=== PATIENT | female | born 1965 | race Caucasian/White ===

== ENCOUNTER 2019-09-07 09:23 | Emergency (ER) | payer BC, OTHER ==
[2019-09-07] MEDS ORDERED: LIDOCAINE 1% MPF 30 ML VIAL ONE (10:54)
--- NOTE | 2019-09-07 12:03 | ER ---
Nurse's Notes [facility] Name: Colleen Jackson Age: 54 yrs Sex: Female : 1965 Arrival Date: 09/07/2019 Time: : Bed 24 Private MD: Diagnosis: Cutaneous abscess of face Presentation: 09/07 09:43 Presenting complaint: Patient states: went to urgent care Thursday because she had a lump iw behind her left ear, was put on antibiotics, not getting better and pain is increased, was seen at urgent care to follow up but was sent to ER. Transition of care: patient was not received from another setting of care. Onset of symptoms was September 01, 2019. Risk Assessment: Do you want to hurt yourself or someone else? Patient reports no desire to harm self or others. Initial Sepsis Screen: Does the patient meet any 2 criteria? No. Patient's initial sepsis screen is negative. Does the patient have a suspected source of infection? No. Patient's initial sepsis screen is negative. Care prior to arrival: None. 09:43 Method Of Arrival: Ambulatory iw 09:43 Acuity: LELO 3 iw Historical: - Allergies: 09:46 No Known Allergies; iw - Home Meds: 09:47 Clindamycin Oral [Active]; iw - PMHx: 09:47 None; iw - PSHx: 09:47 Cholecystectomy; ; right elbow; iw - Immunization history:: Adult Immunizations not up to date, Last tetanus immunization: unknown. - Social history:: Smoking status: Patient denies any tobacco usage or history of. - Ebola Screening: : Patient negative for fever greater than or equal to 101.5 degrees Fahrenheit, and additional compatible Ebola Virus Disease symptoms Patient denies exposure to infectious person Patient denies travel to an Ebola-affected area in the 21 days before illness onset No symptoms or risks identified at this time. Screenin:55 Abuse screen: Denies threats or abuse. Denies injuries from another. Nutritional ca1 screening: No deficits noted. Tuberculosis screening: No symptoms or risk factors identified. Fall Risk None identified. Assessment: 09:55 General: Appears in no apparent distress. comfortable, Behavior is calm, cooperative, ca1 appropriate for age. Pain: Complains of pain in left anabaptism Pain currently is 8 out of 10 on a pain scale. Quality of pain is described as throbbing, Pain began a week ago. Neuro: Level of Consciousness is awake, alert, obeys commands, Oriented to person, place, time, situation, Appropriate for age. Derm: Skin is intact, is healthy with good turgor, Skin is pink, warm \T\ dry. Abscess located on left anabaptism is nickel sized, has purulent drainage, is hot to touch, is red, is raised. Musculoskeletal: Circulation, motion, and sensation intact. Capillary refill. 11:06 Reassessment: Patient appears in no apparent distress at this time. Patient and/or ca1 family updated on plan of care and expected duration. Pain level reassessed. Patient is alert, oriented x 3, equal unlabored respirations, skin warm/dry/pink. 12:00 Reassessment: Patient appears in no apparent distress at this time. Patient is alert, ca1 oriented x 3, equal unlabored respirations, skin warm/dry/pink. Vital Signs: 09:46 BP 125 / 79; Pulse 98; Resp 16; Temp 97.5; Pulse Ox 98% on R/A; Weight 122.47 kg; iw Height 5 ft. 2 in. (157.48 cm); 11:06 BP 141 / 95; Pulse 107; Resp 17 S; Pulse Ox 97% on R/A; ca1 12:00 BP 119 / 81; Pulse 99; Resp 17 S; Pulse Ox 98% on R/A; ca1 09:46 Body Mass Index 49.38 (122.47 kg, 157.48 cm) iw ED Course: 09:29 Patient arrived in ED. mr 09:45 Triage completed. iw 09:46 Arm band placed on. iw 09:54 Alexandria Banegas, RN is Primary Nurse. ca1 09:55 Patient has correct armband on for positive identification. Bed in low position. Call ca1 light in reach. Side rails up X 1. Pulse ox on. NIBP on. Warm blanket given. 09:55 Patient did not have IV access during this emergency room visit. ca1 10:01 Chad Rivero PA is PHCP. jr8 10:01 Octavio Walls MD is Attending Physician. jr8 12:02 Jasmyne Hercules MD is Referral Physician. jr8 12:03 Assist provider with I \T\ D: of an abscess on left anabaptism Set up I\T\D tray. Performed by ca 1 Chad TRIVEDI Wound packed. iodoform gauze, Dressing with 4X4s, tape Patient tolerated well. Administered Medications: 10:40 Drug: Lidocaine (1 %) 1 vials {Note: by FAROOQ Bonilla.} Volume: 20 ml; Route: Infiltration; ca1 Outcome: 12:02 Discharge ordered by MD. sellers 12:09 Discharged to home ambulatory. ca1 12:09 Condition: stable 12:09 Discharge instructions given to patient, Instructed on discharge instructions, follow up and referral plans. medication usage, wound care, Demonstrated understanding of instructions, follow-up care, medications, wound care, Prescriptions given X 2. 12:10 Patient left the ED. ca1 Signatures: Sissy Schilling Irene, EARL RN Chad Gordon PA PA jrAlexandria Urrutia RN RN ca1 Corrections: (The following items were deleted from the chart) 09:48 09:46 BP 125 / 79; Pulse 98bpm; Resp 16bpm; Pulse Ox 98% RA; Temp 97.5F; iw estrella
--- NOTE | 2019-09-07 12:03 | EDPHYS ---
Physician Documentation [facility] Name: Colleen Jackson Age: 54 yrs Sex: Female : 1965 Arrival Date: 09/07/2019 Time: : Bed 24 Private MD: ED Physician Octavio Walls HPI: 09/07 10:51 This 54 yrs old Female presents to ER via Ambulatory with complaints of Skin jr8 Problem. 10:51 the patient presents with a swollen area of the face. Description: The affected area is jr8 moderate sized, erythematous, swollen, warm. Onset: The symptoms/episode began/occurred acutely, 2 day(s) ago. Possible cause(s): unknown. Associated signs and symptoms: The patient has no apparent associated signs or symptoms. Modifying factors: the symptoms are alleviated by nothing, the symptoms are aggravated by pressure, squeezing the lesion and expressing the contents, touching. Severity of symptoms: At their worst the symptoms were moderate, in the emergency department the symptoms are unchanged. The patient has not experienced similar symptoms in the past. The patient has been recently seen at an urgent care. Patient seen at urgent care and started on Clindamycin for infection to left baptism/auricular region. Stated that pain is still persistent and feels that the redness is worse . Historical: - Allergies: 09:46 No Known Allergies; iw - Home Meds: 09:47 Clindamycin Oral [Active]; iw - PMHx: 09:47 None; iw - PSHx: 09:47 Cholecystectomy; ; right elbow; iw - Immunization history:: Adult Immunizations not up to date, Last tetanus immunization: unknown. - Social history:: Smoking status: Patient denies any tobacco usage or history of. - Ebola Screening: : Patient negative for fever greater than or equal to 101.5 degrees Fahrenheit, and additional compatible Ebola Virus Disease symptoms Patient denies exposure to infectious person Patient denies travel to an Ebola-affected area in the 21 days before illness onset No symptoms or risks identified at this time. ROS: 10:52 Eyes: Negative for injury, pain, redness, and discharge, ENT: Negative for injury, jr8 pain, and discharge, Neck: Negative for injury, pain, and swelling, Cardiovascular: Negative for chest pain, palpitations, and edema, Respiratory: Negative for shortness of breath, cough, wheezing, and pleuritic chest pain, Abdomen/GI: Negative for abdominal pain, nausea, vomiting, diarrhea, and constipation, Back: Negative for injury and pain, MS/Extremity: Negative for injury and deformity, Neuro: Negative for headache, weakness, numbness, tingling, and seizure. 10:52 Skin: Positive for erythema, swelling, of the auricular region . Exam: 10:53 Eyes: Pupils equal round and reactive to light, extra-ocular motions intact. Lids and jr8 lashes normal. Conjunctiva and sclera are non-icteric and not injected. Cornea within normal limits. Periorbital areas with no swelling, redness, or edema. ENT: Nares patent. No nasal discharge, no septal abnormalities noted. Tympanic membranes are normal and external auditory canals are clear. Oropharynx with no redness, swelling, or masses, exudates, or evidence of obstruction, uvula midline. Mucous membranes moist. Neck: Trachea midline, no thyromegaly or masses palpated, and no cervical lymphadenopathy. Supple, full range of motion without nuchal rigidity, or vertebral point tenderness. No Meningismus. Cardiovascular: Regular rate and rhythm with a normal S1 and S2. No gallops, murmurs, or rubs. Normal PMI, no JVD. No pulse deficits. Respiratory: Lungs have equal breath sounds bilaterally, clear to auscultation and percussion. No rales, rhonchi or wheezes noted. No increased work of breathing, no retractions or nasal flaring. Abdomen/GI: Soft, non-tender, with normal bowel sounds. No distension or tympany. No guarding or rebound. No evidence of tenderness throughout. Back: No spinal tenderness. No costovertebral tenderness. Full range of motion. MS/ Extremity: Pulses equal, no cyanosis. Neurovascular intact. Full, normal range of motion. Neuro: Awake and alert, GCS 15, oriented to person, place, time, and situation. Cranial nerves II-XII grossly intact. Motor strength 5/5 in all extremities. Sensory grossly intact. Cerebellar exam normal. Normal gait. 10:53 Skin: Patient has swollen fluctuant area to the superior/anterior pre auricular region of left ear with surrounding erythema that extends to portions of the auricular region, baptism, and post auricular region . Vital Signs: 09:46 BP 125 / 79; Pulse 98; Resp 16; Temp 97.5; Pulse Ox 98% on R/A; Weight 122.47 kg; iw Height 5 ft. 2 in. (157.48 cm); 11:06 BP 141 / 95; Pulse 107; Resp 17 S; Pulse Ox 97% on R/A; ca1 12:00 BP 119 / 81; Pulse 99; Resp 17 S; Pulse Ox 98% on R/A; ca1 09:46 Body Mass Index 49.38 (122.47 kg, 157.48 cm) iw Procedures: 12:01 I \T\ D: Incision and drainage was performed for an abscess of the left pre auricular jr8 region Prepped with Betadine, Anesthetized with 2 ml's 1% Lidocaine. Incised with #11 blade. Drained moderate amount purulent fluid. Loculations removed. Abscess cavity explored. Packed with iodoform gauze, the patient tolerated the procedure well. MDM: 10:01 Patient medically screened. jr8 12:01 Data reviewed: vital signs, nurses notes, and as a result, I will discharge patient. jr8 Data interpreted: Pulse oximetry: on room air is 97 %. Interpretation: normal. Counseling: I had a detailed discussion with the patient and/or guardian regarding: the historical points, exam findings, and any diagnostic results supporting the discharge/admit diagnosis, the need for outpatient follow up, an ENT specialist, to return to the emergency department if symptoms worsen or persist or if there are any questions or concerns that arise at home. 09/07 10:46 Order name: I\T\D Setup; Complete Time: 10:50 jr8 Administered Medications: 10:40 Drug: Lidocaine (1 %) 1 vials {Note: by PA. Chad} Volume: 20 ml; Route: Infiltration; ca1 Disposition: 16:45 Co-signature as Attending Physician, Octavio Walls MD. rn Disposition: 09/07/19 12:02 Discharged to Home. Impression: Cutaneous abscess of face. - Condition is Stable. - Discharge Instructions: Skin Abscess, Incision and Drainage. - Prescriptions for Tylenol- Codeine #3 300-30 mg Oral Tablet - take 2 tablets by ORAL route every 6 hours As needed; 20 tablet. Bactrim DS 800- 160 mg Oral Tablet - take 1 tablet by ORAL route every 12 hours for 10 days; 20 tablet. - Medication Reconciliation Form, Thank You Letter, Antibiotic Education, Prescription Opioid Use, Work release form form. - Follow up: Jasmyne Hercules MD; When: 2 - 3 days; Reason: Wound Recheck, Recheck today's complaints, Continuance of care, Re-evaluation by your physician. - Problem is new. - Symptoms have improved. Signatures: Vidhya Lee RN RN iw Octavio Walls MD MD rn Roszak, Josh, FAROOQ PA jr8 Alexandria Banegas RN RN ca1 Corrections: (The following items were deleted from the chart) 10:54 10:52 Skin: Positive for erythema, swelling, of the left baptism, jr8 jr8 12:10 12:02 09/07/2019 12:02 Discharged to Home. Impression: Cutaneous abscess of face. ca1 Condition is Stable. Forms are Medication Reconciliation Form, Thank You Letter, Antibiotic Education, Prescription Opioid Use. Follow up: Jasmyne Hercules; When: 2 - 3 days; Reason: Wound Recheck, Recheck today's complaints, Continuance of care, Re-evaluation by your physician. Problem is new. Symptoms have improved. jr8
[2019-09-07 19:26] VITALS: TEMP 97.5
[2019-09-07 19:29] VITALS: BP 119/81; O2SAT 98
== END 2019-09-07 12:10 | disposition home or self-care (01) ==
LOC: ER 09:23
PROC: 0H91XZZ Drainage of Face Skin, External Approach (ICD-10-PCS; principal; 2019-09-07)
DX: L02.01 Cutaneous abscess of face (principal)
CPT/HCPCS: 99284

== ENCOUNTER 2022-04-14 07:50 | Emergency (ER) | payer BC ==
[2022-04-14] MEDS ORDERED: MECLIZINE HCL 12.5 MG TAB ONE (08:29)
[2022-04-14] MEDS ORDERED: NA CHLORIDE 0.9% 500 ML ONE (08:29)
[2022-04-14 08:31] LABS: Absolute Lymphocytes (CBC) 1.9 K/uL (0.7-4.9); Hematocrit 39.6 % (36.0-45.0); Lymphocytes % 24.9 % (15.3-44.8); MCV 93.5 fL (80-100); MPV 8.1 fL (7.6-11.3); RBC Red Blood Cell Count 4.24 M/uL (3.86-4.86)
--- NOTE | 2022-04-14 08:34 | RAD REPORT ---
EXAM DESCRIPTION: CT - Head Brain Wo Cont - 04/14/2022 8:26 am CLINICAL HISTORY: dizziness, vertigo COMPARISON: No comparisons TECHNIQUE: All CT scans are performed using dose optimization technique as appropriate and may inclu de automated exposure control or mA/KV adjustment according to patient size. FINDINGS: No intracranial hemorrhage, hydrocephalus or extra-axial fluid collection.No areas of brai n edema or evidence of midline shift. The paranasal sinuses and mastoids are clear. The calvarium is intact. IMPRESSION: No acute intracranial abnormality.
[2022-04-14 08:42] LABS: Potassium 3.5 mmol/L (3.5-5.1)
[2022-04-14 08:51] LABS: Protime INR 1.03
--- NOTE | 2022-04-14 09:06 | RAD REPORT ---
EXAM DESCRIPTION: MRI - Brain Wo Cont - 04/14/2022 8:53 am CLINICAL HISTORY: dizziness/vertigo COMPARISON: Head Brain Wo Cont dated 04/14/2022 TECHNIQUE: Sagittal T1-weighted images were obtained along with PD/heavily T2-weighted and T2-FLAIR images. Axial DWI and ADC mapping sequences were also obtained along with coronal heavily T2-weighted images were obtained. FINDINGS: No intracranial hemorrhage, mass or acute infarction. There is no edema or shift of midlin e structures. No extra-axial fluid collections. Signal voids are seen as a normal finding in the derrick r intracranial vessels. No significant white matter disease. Mastoid air cells and paranasal sinuses are clear. IMPRESSION: Negative non-contrast MRI of the Brain. Specifically, no evidence of acute infarct.
--- NOTE | 2022-04-14 09:19 | ER ---
Nurse's Notes [facility] Name: Colleen Jackson Age: 56 yrs Sex: Female : 1965 Arrival Date: 04/14/2022 Time: 07:51 Bed 13 Private MD: Diagnosis: Vertigo Presentation: 04/14 07:53 Chief complaint: Patient states: Dizziness since yesterday morning, reports she feels aa5 like left ear is plugged up. Coronavirus screen: At this time, the client does not indicate any symptoms associated with coronavirus-19. Ebola Screen: No symptoms or risks identified at this time. Initial Sepsis Screen: Does the patient meet any 2 criteria? HR > 90 bpm. Does the patient have a suspected source of infection? No. Patient's initial sepsis screen is negative. Risk Assessment: Do you want to hurt yourself or someone else? Patient reports no desire to harm self or others. Onset of symptoms was March 2022. 07:53 Method Of Arrival: Ambulatory aa5 07:53 Acuity: LELO 3 aa5 Triage Assessment: 08:00 General: Appears in no apparent distress. Behavior is calm, cooperative. Pain: Denies jg9 pain. Historical: - Allergies: 08:01 No Known Allergies; aa5 - Home Meds: 08:01 None [Active]; aa5 - PMHx: 08:01 None; aa5 - PSHx: 08:01 section; Cholecystectomy; R elbow; aa5 - Immunization history:: Adult Immunizations unknown. - Social history:: Smoking status: Patient denies any tobacco usage or history of. - Family history:: not pertinent. - Hospitalizations: : No recent hospitalization is reported. Screenin:06 Abuse screen: Denies threats or abuse. Denies injuries from another. Nutritional jg9 screening: No deficits noted. Tuberculosis screening: No symptoms or risk factors identified. Fall Risk None identified. Assessment: 08:00 Reassessment: No changes from previously documented assessment. Patient and/or family jg9 updated on plan of care and expected duration. Pain level reassessed. Patient is alert, oriented x 3, equal unlabored respirations, skin warm/dry/pink. Neuro: Reports dizziness. Cardiovascular: No deficits noted. Respiratory: No deficits noted. GI: No deficits noted. : No deficits noted. EENT: No deficits noted. Derm: No deficits noted. Musculoskeletal: No deficits noted. 09:00 Reassessment: No changes from previously documented assessment. Patient and/or family jg9 updated on plan of care and expected duration. Pain level reassessed. Patient is alert, oriented x 3, equal unlabored respirations, skin warm/dry/pink. Patient states feeling better. Patient states symptoms have improved. Vital Signs: 07:53 BP 144 / 83; Pulse 94; Resp 18 S; Temp 97.9(O); Pulse Ox 100% on R/A; Weight 91.63 kg aa5 (R); Height 5 ft. 2 in. (157.48 cm) (R); Pain 0/10; 08:00 BP 145 / 76; Pulse 92; Resp 17 S; Pulse Ox 100% on R/A; Pain 0/10; jg9 09:15 BP 123 / 82; Pulse 84; Resp 14 S; Pulse Ox 100% on R/A; jg9 07:53 Body Mass Index 36.95 (91.63 kg, 157.48 cm) aa5 ED Course: 07:51 Patient arrived in ED. am2 07:52 Octavio Walls MD is Attending Physician. rn 07:58 Arm band placed on Patient placed in an exam room, on a stretcher. aa5 08:00 Missed attempt(s): 22 gauge in right forearm. jg9 08:01 Triage completed. aa5 08:01 EKG done, by ED staff, reviewed by Octavio Walls MD. mb7 08:05 Jewels Traore, RN is Primary Nurse. jg9 08:05 Inserted saline lock: 22 gauge in left antecubital area, using aseptic technique. jg9 08:07 Patient has correct armband on for positive identification. Bed in low position. Call jg9 light in reach. Side rails up X 1. 08:20 Basic Metabolic Panel Sent. kc6 08:20 CBC with Diff Sent. kc6 08:20 Protime (+inr) Sent. kc6 08:20 Ptt, Activated Sent. kc6 08:28 CT Head Brain wo Cont In Process Unspecified. EDMS 08:53 Brain Wo Cont MRI In Process Unspecified. EDMS 09:19 Dane Nino MD is Referral Physician. rn Administered Medications: 09:05 Drug: NS 0.9% 500 ml Route: IV; Rate: bolus; Site: left antecubital; jg9 09:37 Follow up: IV Status: Completed infusion; IV Intake: 500ml g 09:09 Drug: Meclizine 50 mg Route: PO; g9 09:30 Follow up: Response: No adverse reaction g9 Intake: 09:37 IV: 500ml; Total: 500ml. g9 Outcome: 09:19 Discharge ordered by . rn 09:38 Patient left the ED. g9 Signatures: Dispatcher [employer] EDMS Octavio Walls MD MD rn Calderon, Audri RN RN aa5 Candi Myers Mary mb7 Jewels Traore RN RN jg9 Lidya Escobar kc6
--- NOTE | 2022-04-14 09:20 | EDPHYS ---
Physician Documentation [facility] Name: Colleen Jackson Age: 56 yrs Sex: Female : 1965 Arrival Date: 04/14/2022 Time: 07:51 Bed 13 Private MD: ED Physician Octavio Walls HPI: 04/14 08:29 This 56 yrs old Female presents to ER via Ambulatory with complaints of Dizziness. rn 08:29 The patient presents with dizziness, feeling off balance, vertigo. Onset: The rn symptoms/episode began/occurred yesterday. Modifying factors: The symptoms are alleviated by closing eyes, holding head still, the symptoms are aggravated by movement of head, standing up. Associated signs and symptoms: Pertinent positives: nausea, Pertinent negatives: abdominal pain, chest pain, confusion, seizure, shortness of breath, syncope, tingling, vomiting. Severity of symptoms: At their worst the symptoms were moderate in the emergency department the symptoms have improved. The patient has not experienced similar symptoms in the past. The patient has not recently seen a physician. Pt reports dizziness, sensation of spinning, began yesterday morning when woke up. No fever. No head injury. Has never happened before. Denies any other focal neuro complaints. NO headache. No recent illness. . Historical: - Allergies: 08:01 No Known Allergies; aa5 - Home Meds: 08:01 None [Active]; aa5 - PMHx: 08:01 None; aa5 - PSHx: 08:01 section; Cholecystectomy; R elbow; aa5 - Immunization history:: Adult Immunizations unknown. - Social history:: Smoking status: Patient denies any tobacco usage or history of. - Family history:: not pertinent. - Hospitalizations: : No recent hospitalization is reported. ROS: 08:29 Constitutional: Negative for fever, chills, and weight loss, Eyes: Negative for injury, rn pain, redness, and discharge, ENT: Negative for injury, pain, and discharge, Neck: Negative for injury, pain, and swelling, Cardiovascular: Negative for chest pain, palpitations, and edema, Respiratory: Negative for shortness of breath, cough, wheezing, and pleuritic chest pain, Abdomen/GI: Negative for abdominal pain, vomiting, diarrhea, and constipation, Back: Negative for injury and pain, : Negative for injury, bleeding, discharge, and swelling, MS/Extremity: Negative for injury and deformity, Skin: Negative for injury, rash, and discoloration, Neuro: Negative for weakness, numbness, tingling, and seizure. Exam: 08:25 ECG was reviewed by the Attending Physician. rn 08:29 Constitutional: This is a well developed, well nourished patient who is awake, alert, rn and in no acute distress. Head/Face: Normocephalic, atraumatic. Eyes: Pupils equal round and reactive to light, extra-ocular motions intact. Lids and lashes normal. Conjunctiva and sclera are non-icteric and not injected. Cornea within normal limits. Periorbital areas with no swelling, redness, or edema. Neck: Trachea midline, no thyromegaly or masses palpated, and no cervical lymphadenopathy. Supple, full range of motion without nuchal rigidity, or vertebral point tenderness. No Meningismus. Cardiovascular: Regular rate and rhythm. No pulse deficits. Respiratory: Lungs have equal breath sounds bilaterally, clear to auscultation and percussion. No rales, rhonchi or wheezes noted. No increased work of breathing, no retractions or nasal flaring. Abdomen/GI: Soft, non-tender, with normal bowel sounds. No distension or tympany. No guarding or rebound. No evidence of tenderness throughout. Skin: Warm, dry with normal turgor. Normal color with no rashes, no lesions, and no evidence of cellulitis. MS/ Extremity: Pulses equal, no cyanosis. Neurovascular intact. Full, normal range of motion. Equal circumference. Neuro: Awake and alert, GCS 15, oriented to person, place, time, and situation. Cranial nerves II-XII grossly intact. Motor strength 5/5 in all extremities. Sensory grossly intact. Cerebellar exam normal Vital Signs: 07:53 BP 144 / 83; Pulse 94; Resp 18 S; Temp 97.9(O); Pulse Ox 100% on R/A; Weight 91.63 kg aa5 (R); Height 5 ft. 2 in. (157.48 cm) (R); Pain 0/10; 08:00 BP 145 / 76; Pulse 92; Resp 17 S; Pulse Ox 100% on R/A; Pain 0/10; jg9 09:15 BP 123 / 82; Pulse 84; Resp 14 S; Pulse Ox 100% on R/A; jg9 07:53 Body Mass Index 36.95 (91.63 kg, 157.48 cm) aa5 MDM: 07:52 Patient medically screened. rn 09:14 Differential diagnosis: generalized weakness, hyperventilation, hypovolemia, idiopathic rn dizziness, vertigo. Data reviewed: vital signs, nurses notes, lab test result(s), EKG, radiologic studies, CT scan, MRI, and as a result, I will discharge patient. Counseling: I had a detailed discussion with the patient and/or guardian regarding: the historical points, exam findings, and any diagnostic results supporting the discharge/admit diagnosis, lab results, radiology results, the need for outpatient follow up, to return to the emergency department if symptoms worsen or persist or if there are any questions or concerns that arise at home. Response to treatment: the patient's symptoms have mildly improved after treatment, and as a result, I will discharge patient. Special discussion: I discussed with the patient/guardian in detail that at this point there is no indication for admission to the hospital. It is understood, however, that if the symptoms persist or worsen the patient needs to return immediately for re-evaluation. Based on the history and exam findings, there is no indication for further emergent testing or inpatient evaluation. I discussed with the patient/guardian the need to see the neurologist for further evaluation of the symptoms. ED course: Pt improved, CT head and MRI negative, stable vitals, no focal neuro deficits on exam, had long conversation with patient regarding not driving and to avoid heights until resolves. Will f/u with Dr. Nino for further evaluation and care. . 04/14 08:13 Order name: Basic Metabolic Panel; Complete Time: rn 04/14 08:13 Order name: CBC with Diff; Complete Time: rn 04/14 08:13 Order name: Protime (+inr); Complete Time: rn 04/14 08:13 Order name: Ptt, Activated; Complete Time: rn 04/14 08:13 Order name: CT Head Brain wo Cont; Complete Time: 04/14 08:14 Order name: Brain Wo Cont MRI; Complete Time: 09:04/14 08:13 Order name: EKG; Complete Time: 08:14 rn 04/14 08:13 Order name: Cardiac monitoring; Complete Time: 08:16 rn 04/14 08:13 Order name: EKG - Nurse/Tech; Complete Time: 08:16 rn 04/14 08:13 Order name: IV Saline Lock; Complete Time: 08:17 rn 04/14 08:13 Order name: Labs collected and sent; Complete Time: 08:17 rn 04/14 08:13 Order name: O2 Per Protocol; Complete Time: 08:20 rn 04/14 08:13 Order name: O2 Sat Monitoring; Complete Time: 08:17 rn EC:25 Rate is 88 beats/min. Rhythm is regular. QRS [place] is Normal. [place] interval is normal. QRS rn interval is normal. QT interval is normal. No Q waves. T waves are Normal. No ST changes noted. Clinical impression: Normal ECG. Interpreted by me. Reviewed by me. Administered Medications: 09:05 Drug: NS 0.9% 500 ml Route: IV; Rate: bolus; Site: left antecubital; jg9 09:37 Follow up: IV Status: Completed infusion; IV Intake: 500ml jg9 09:09 Drug: Meclizine 50 mg Route: PO; jg9 09:30 Follow up: Response: No adverse reaction jg9 Disposition Summary: 04/14/22 09:19 Discharge Ordered Location: Home rn Problem: new rn Symptoms: have improved rn Condition: Stable rn Diagnosis - Vertigo rn Followup: rn - With: Dane Nino MD - When: As needed - Reason: Recheck today's complaints, Re-evaluation by your physician Discharge Instructions: - Discharge Summary Sheet rn - Benign Positional Vertigo rn - Vertigo rn Forms: - Medication Reconciliation Form rn - Thank You Letter rn - Antibiotic development intern - Prescription Opioid Use rn Prescriptions: - Meclizine 25 mg Oral Tablet - take 1 tablet by ORAL route every 8 hours As needed; 30 tablet; Refills: 0, rn Product Selection Permitted Signatures: Dispatcher [employer] Octavio Malagon MD MD rn Calderon, Audri RN RN aa5 Jewels Traore RN RN jg9 Corrections: (The following items were deleted from the chart) 09:38 08:13 Urine Dipstick-Ancillary ordered. rn jg9
[2022-04-14 10:33] VITALS: TEMP 97.9; O2SAT 100
[2022-04-14 10:45] VITALS: BP 123/82
--- NOTE | 2022-04-15 08:16 | EKG ---
Test Date: 2022-04-14 Test Time: 08:01:54 Development Rep: ABDIAS MEASUREMENT RESULTS: Intervals: Rate: 88 CA: 134 QRSD: 82 QT: 356 QTc: 430 [place]: P: 71 CA: 134 QRS: 49 T: 68 INTERPRETIVE STATEMENTS: Normal sinus rhythm Normal ECG Compared to ECG 01/14/2012 08:47:52 No significant changes Electronically Signed On 04-15-22 08:12:32 CDT by Demetris Parekh
== END 2022-04-14 09:38 | disposition home or self-care (01) ==
LOC: ER 07:50
DX: R42 Dizziness and giddiness (principal); R11.0 Nausea
CPT/HCPCS: 93005; 85025; 80048; 36415; 85610; 85730; 70450; 70551; J8597; J7040; 96360; 99284

== ENCOUNTER 2022-07-08 23:11 | Emergency (ER) | payer BC ==
--- OUTSIDE RECORDS SUMMARY | 2022-07-08 23:14 | XMS REPORT | Continuity of Care Document ---
:1965 Author Organization [facility] t Address [address] [place] [address] Care Team Providers Name Role Phone Usman Contreras Primary Care Physician USMAN CHRIS Attending Clinician Unavailable Usman Contreras Attending Clinician Lab, Ang - Db Attending Clinician Unavailable Doctor Unassigned, [place] Attending Clinician Unavailable Payers Payer Name Policy Type Policy Number Effective Date Expiration Date S jenni [facility] - [id number] 2022 00:00:00 OUT OF STATE Problems Condition Condition Condition Status Onset Resolution Last Treating Co mments Source Name Details Category Date Date Treatment Clinician Date Encounter Encounter Disease Active 2021-08 Uni vers to to 18 ity of establish establish 00:00: [facility] 00 Medical Branch Elevated Elevated Disease Active 2021-08 Unive rs TSH TSH -18 ity of 00:00: [place] 00 Medical Branch Depression Depression Disease Active 2021-08 U maverickers , , 1-18 ity of unspecifie unspecifie 00:00: Del hernandez d d 00 Medical depression depression Br anch type type Obesity Obesity Disease Active 2021-08 Univers (BMI (BMI 1-18 ity of 30.0-34.9) 30.0-34.9[place] Elevated Elevated Disease Active 2021-08 Unive rs blood blood -18 ity of pressure pressure 00:00: [place] reading in reading in 00 Me dical office office Branch without without diagnosis diagnosis of of hypertensi hypertensi on on Primary Primary Disease Active 2021-08 Univers insomnia insomnia 09-03 ity of 00:00: [place] [address] Medical Branch Allergies, Adverse Reactions, Alerts Allergy Allergy Status Severity Reaction(s) Onset Inactive Treating Comm ents Source Name Type Date Date Clinician NO KNOWN Drug Active Univers ALLERGIE Class ity of S [place] Medical Branch Social History Social Habit Start Date Stop Date Quantity Comments Source Exposure to 2022-06-24 2022-07-04 Not sure [facility] SARS-CoV-2 (event) 00:00:00 14:36:00 Medica l Branch Sex Assigned At [birth year] [facility] 00:00:00 00:00:00 Medical Branch Smoking Status Start Date Stop Date Source Tobacco smoking consumption [facility] Medical unknown Branch Medications Ordered Filled Start Stop Current Ordering Indication Dosage Frequency Signature Comments Components Source Medication Medication Date Date Medication? Clinician (SIG) Name Name calcium 2021-08 Yes Take by Univers carbonate/v 1-18 mouth. ity of itamin D3 15:18: [place] (VITAMIN 00 Medical D-3 ORAL) Branch MELATONIN 2021-08 Yes Take by Unive rs ORAL 1-18 mouth. ity of 15:18: Medical Branch TURMERIC 2021-08 Yes Take by Univer s ORAL 1-18 mouth. ity of 15:18: Medical Branch calcium 2021-08 Yes Take by Univers carbonate/v 1-18 mouth. ity of itamin D3 15:18: [place] (VITAMIN 00 Medical D-3 ORAL) Branch MELATONIN 2021-08 Yes Take by Unive rs ORAL 1-18 mouth. ity of 15:18: Medical Branch TURMERIC 2021-08 Yes Take by Univer s ORAL 1-18 mouth. ity of 15:18: 00 Medical Branch calcium 2021-08 Yes Take by Univers carbonate/v 1-18 mouth. ity of itamin D3 15:18: [place] (VITAMIN 00 Medical D-3 ORAL) Branch MELATONIN 2021-08 Yes Take by Unive rs ORAL 1-18 mouth. ity of 15:18: Medical Branch TURMERIC 2021-08 Yes Take by Univer s ORAL 1-18 mouth. ity of 15:18: [place] 00 Medical Branch calcium 2021-08 Yes Take by Univers carbonate/v 1-18 mouth. ity of itamin D3 15:18: [place] (VITAMIN 00 Medical D-3 ORAL) Branch MELATONIN 2021-08 Yes Take by Unive rs ORAL 1-18 mouth. ity of 15:18: [place] 00 Medical Branch TURMERIC 2021-08 Yes Take by Univer s ORAL 1-18 mouth. ity of 15:18: [place] 00 Medical Branch calcium 2021-08 Yes Take by Univers carbonate/v 1-18 mouth. ity of itamin D3 15:18: [place] (VITAMIN 00 Medical D-3 ORAL) Branch MELATONIN 2021-08 Yes Take by Unive rs ORAL 1-18 mouth. ity of 15:18: [place] 00 Medical Branch TURMERIC 2021-08 Yes Take by Univer s ORAL 1-18 mouth. ity of 15:18: [place] 00 Medical Branch hydrOXYzine 2021-08 Yes [id number] 25mg Take 1 U nivers 25 mg 1-18 tablet by ity of tablet 00:00: mouth at [place] 00 bedtime. Medical Branch hydrOXYzine 2021-08 Yes [id number] 25mg Take 1 U nivers 25 mg 1-18 tablet by ity of tablet 00:00: mouth at [place] 00 bedtime. Medical Branch hydrOXYzine 2021-08 Yes [id number] 25mg Take 1 U nivers 25 mg 1-18 tablet by ity of tablet 00:00: mouth at [place] 00 bedtime. Medical Branch hydrOXYzine 2021-08 Yes [id number] 25mg Take 1 U nivers 25 mg 1-18 tablet by ity of tablet 00:00: mouth at [place] [address] bedtime. Medical Branch hydrOXYzine 2021-08 Yes [id number] 25mg Take 1 U nivers 25 mg 1-18 tablet by ity of tablet 00:00: mouth at [place] 00 bedtime. Medical Branch MOUNJARO 5 2021-08 Yes INJECT Unive rs mg/0.5 mL 0-26 FIVE (5) ity of PnIj 00:00: MG SUBCUTANEO Medical USLY ONCE Branch WEEKLY FOR 4 WEEKS. [facility] 5 2021-08 Yes INJECT Unive rs mg/0.5 mL 0-26 FIVE (5) ity of PnIj 00:00: MG [place] 00 SUBCUTANEO Medical USLY ONCE Branch WEEKLY FOR 4 WEEKS. [facility] 2021[facility] Yes INJECT Unive rs mg/0.5 mL 0-26 FIVE (5) ity of PnIj 00:00: MG [place] 00 SUBCUTANEO Medical USLY ONCE Branch WEEKLY FOR 4 WEEKS. [facility] 2021-08 Yes INJECT Unive rs mg/0.5 mL 0-26 FIVE (5) ity of PnIj 00:00: MG [place] 00 SUBCUTANEO Medical USLY ONCE Branch WEEKLY FOR 4 WEEKS. [facility] 2021-08 Yes INJECT Unive rs mg/0.5 mL 0-26 FIVE (5) ity of PnIj 00:00: MG [place] 00 SUBCUTANEO Medical USLY ONCE Branch WEEKLY FOR 4 WEEKS. buPROPion 2021-08 Yes 150mg Take 150 Uni vers XL 150 mg 0-04 mg by ity of 24 hr 00:00: mouth [place] tablet 00 every Medical morning. Branch buPROPion 2021-08 Yes 150mg Take 150 Uni vers XL 150 mg 0-04 mg by ity of 24 hr 00:00: mouth [place] tablet 00 every Medical morning. Branch buPROPion 2021-08 Yes 150mg Take 150 Uni vers XL 150 mg 0-04 mg by ity of 24 hr 00:00: mouth [place] tablet 00 every Medical morning. Branch buPROPion 2021-08 Yes 150mg Take 150 Uni vers XL 150 mg 0-04 mg by ity of 24 hr 00:00: mouth [place] tablet 00 every Medical morning. Branch buPROPion 2021-08 Yes 150mg Take 150 Uni vers XL 150 mg 0-04 mg by ity of 24 hr 00:00: mouth [place] tablet 00 every Medical morning. [place] Vital Signs Vital Name Observation Time Observation Value Comments Source Systolic blood 2022-07-04 21:18:00 139 mm[Hg] Univer sity of pressure [facility] Diastolic blood 2022-07-04 21:18:00 85 mm[Hg] Unive rsity [facility] Heart rate 2022-07-04 21:18:00 98 /min [facility] Body temperature 2022-07-04 21:18:00 [facility].44 [facility] height 2022-07-04 21:18:00 158.8 cm [facility] Body weight 2022-07-04 21:18:00 86.41 kg [facility] BMI 2022-07-04 21:18:00 34.29 kg/m2 [facility] Oxygen saturation in 2022-07-04 21:18:00 100 /min University Arterial blood by [facility] Pulse oximetry Branch Procedures Procedure Date / Time Performed Performing Clinician [facility] CONSENT/REFUSAL FOR 2022-07-04 20:39:56 Doctor Unassigned, No Un [facility] DIAGNOSIS AND Name [facility] TREATMENT Encounters Start End Encounter Admission Attending Care Care Encounter Source Date/Time Date/Time Type Type Clinicians Facility Department ID 2022-08-13 2022-08-13 Outpatient R DOT [facility] [id number] Univers 08:00:00 08:00:00 USMAN ryne [facility] 2022-07-07 2022-07-07 Telephone Dot [facility] [id number] Univers 00:00:00 00:00:00 Usman [facility] [id number] it y of [facility] [id number] Favio as MAG?BLEA [id number] [facility] [address] MEDICAL OFFICE BUILDING 2022-07-04 2022-07-04 [facility], Ang - [facility] [id number] Univers 16:00:00 16:15:00 Visit Usman Chris [facility] [id number] ity of [place] [id number] Favio as MAG?BLEA [id number] [facility] [address] MEDICAL OFFICE BUILDING 2022-07-04 2022-07-04 Outpatient R DOT [facility] [id number] Univers 15:00:00 15:56:08 USMAN michele [facility] 2022-07-04 2022-07-04 [facility] [id number] Univers 15:00:00 15:56:08 Visit Usman [facility] [id number] it y of [place] [id number] Favio as MAG?BLEA [id number] Nm veena GODINEZ 044 Branch MEDICAL OFFICE BUILDING 2022-07-04 2022-07-04 Orders Doctor LORENA [id number] 00:00:00 00:00:00 Only Unassigned, CAR[place] [id number] ity of [place] [facility] [id number] Favio as [id number] [place] [address] Branch Results This patient has no known results.
[2022-07-09] MEDS ORDERED: ONDANSETRON 4 MG/2 ML VIAL ONE (00:13)
[2022-07-09] MEDS ORDERED: FAMOTIDINE 20 MG/2 ML VIAL IV ONE (00:13)
[2022-07-09] MEDS ORDERED: NA CHLORIDE 0.9% 1,000 ML ONE (00:13)
[2022-07-09 01:07] LABS: Absolute Lymphocytes (CBC) 0.7 K/uL (0.7-4.9); Hematocrit 41.4 % (36.0-45.0); Lymphocytes % 6.6 % (15.3-44.8); MCV 93.6 fL (80-100); MPV 8.7 fL (7.6-11.3); RBC Red Blood Cell Count 4.42 M/uL (3.86-4.86)
[2022-07-09 01:12] LABS: Albumin 3.2 g/dL (3.4-5.0); Bilirubin Total 0.6 mg/dL (0.2-1.0); Magnesium 2.1 mg/dL (1.8-2.4); Potassium 3.3 mmol/L (3.5-5.1); Protein, Total 7.3 g/dL (6.4-8.2)
[2022-07-09] MEDS ORDERED: LIDOCAINE VISCOUS 2% SOLN 15 ML UDC ONE (01:18)
[2022-07-09 01:47] LABS: Urine Blood Negative (Negative); Urine Glucose Negative (Negative); Urine Protein 1+ (Negative); Urine Specific Gravity >=1.030 (1.005-1.030); Urine pH 5.5 (5.0-7.0)
[2022-07-09 02:41] LABS: Calcium Oxalate Crystals- Ur Few /HPF (None Seen); Urine Mucus 3+ /HPF (None Seen)
--- NOTE | 2022-07-09 03:14 | EDPHYS ---
Physician Documentation [facility] Name: Colleen Jackson Age: 56 yrs Sex: Female : 1965 Arrival Date: 07/08/2022 Time: 23:16 Bed 14 Private MD: KOURTNEY Physician Narendra Mcdaniels HPI: 07/08 23:40 This 56 yrs old Female presents to ER via Wheelchair with complaints of Nausea, cp Diarrhea. 23:40 The patient presents to the emergency department with nausea, that is moderate, cp diarrhea, that is continuous, abdominal pain, of the abdomen diffusely. Onset: The symptoms/episode began/occurred 2 day(s) ago. Possible causes: unknown. Associated signs and symptoms: Pertinent positives: anorexia, Pertinent negatives: constipation, fever, GI bleeding. Severity of symptoms: in the emergency department the symptoms are unchanged despite home interventions. Historical: - Allergies: 23:41 No Known Allergies; kb3 - Home Meds: 23:41 Wellbutrin SR 150 mg Oral SR12 1 tab once daily [Active]; hydroxyzine HCl 25 mg Oral kb3 tab 1 tab nightly for anxiety [Active]; Mounjaro 5mg 5 mg weekly on Thu [Active]; - PMHx: 23:41 Depressive disorder; Anxiety; kb3 - PSHx: 23:41 section; Cholecystectomy; R elbow; Uterine ablation; kb3 - Immunization history:: Adult Immunizations up to date, Client reports receiving the 2nd dose of the Covid vaccine, Last tetanus immunization: up to date. - Social history:: Smoking status: Patient denies any tobacco usage or history of. ROS: 23:40 Constitutional: Negative for body aches, chills, fever, poor PO intake. cp 23:40 Cardiovascular: Negative for chest pain, edema, palpitations. cp 23:40 Respiratory: Negative for cough, shortness of breath, wheezing. 23:40 Eyes: Negative for injury, pain, redness, and discharge. cp 23:40 ENT: Negative for drainage from ear(s), ear pain, sore throat, difficulty swallowing, difficulty handling secretions. 23:40 Abdomen/GI: Positive for nausea, diarrhea, abdominal cramps, anorexia, Negative for vomiting, black/tarry stool, rectal bleeding. 23:40 : Negative for urinary symptoms. 23:40 Neuro: Negative for altered mental status, dizziness, headache, weakness. 23:40 All other systems are negative. Exam: 23:45 Constitutional: The patient appears in no acute distress, alert, awake, non-toxic, well cp developed, well nourished. 23:45 Head/Face: Normocephalic, atraumatic. cp 23:45 Eyes: Periorbital structures: appear normal, Conjunctiva: normal, no exudate, no injection, Sclera: no appreciated abnormality, Lids and lashes: appear normal, bilaterally. 23:45 ENT: External ear(s): are unremarkable, Nose: is normal, Mouth: Lips: moist, Oral mucosa: pink and intact, moist, Posterior pharynx: Airway: no evidence of obstruction, patent. 23:45 Neck: ROM/movement: is normal, is supple, without pain, no range of motions limitations. 23:45 Chest/axilla: Inspection: normal. 23:45 Cardiovascular: Rate: tachycardic, Rhythm: regular, Edema: is not appreciated, JVD: is not appreciated. 23:45 Respiratory: the patient does not display signs of respiratory distress, Respirations: normal, no use of accessory muscles, no retractions, labored breathing, is not present, Breath sounds: are clear throughout, no decreased breath sounds, no stridor, no wheezing. 23:45 Abdomen/GI: Inspection: obese Bowel sounds: active, all quadrants, Palpation: soft, in all quadrants, mild abdominal tenderness, in all quadrants, rebound tenderness, is not appreciated, involuntary guarding, is not appreciated. 23:45 Back: pain, is absent, ROM is normal. 23:45 Neuro: Orientation: to person, place \T\ time. Mentation: is normal, Motor: moves all fours, strength is normal, Sensation: is normal. Vital Signs: 23:39 BP 109 / 80; Pulse 129; Resp 20; Temp 98.5; Pulse Ox 100% ; Weight 83.46 kg; Height 5 kb3 ft. 3 in. (160.02 cm); Pain /; 07/09 00:05 BP 116 / 73; Pulse 109; Resp 18 S; Pulse Ox 99% on R/A; aa9 00:41 BP 117 / 78; Pulse 98; Resp 18 S; Pulse Ox 99% on R/A; aa9 01:30 BP 140 / 85; Pulse 92; Resp 18 S; Pulse Ox 97% on R/A; aa9 07/08 23:39 Body Mass Index 32.59 (83.46 kg, 160.02 cm) kb3 MDM: 07/08 23:35 Patient medically screened. cp 07/09 01:00 Differential diagnosis: Nonspecific abd pain, gastritis, pancreatitis, diverticulitis, cp viral gastroenteritis, gastroenteritis. 03:12 Data reviewed: vital signs, nurses notes, lab test result(s), radiologic studies, CT cp scan. 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 Response to treatment: the patient's symptoms have mildly improved after treatment, patient is well hydrated. and as a result, I will discharge patient, administer antibiotics Shanika Barragan. ED course: VSS. Patient appears non-toxic, tolerating po fluids. Will discharge to home for continued monitoring. 07/09 00:08 Order name: CBC with Diff; Complete Time: 01:24 cp 07/09 01:24 Interpretation: Normal except: ARNOLDO% 84.5; LYM% 6.6; NEUT A 8.9. cp 07/09 00:08 Order name: CMP; Complete Time: 01:24 cp 07/09 01:24 Interpretation: Normal except: K 3.3; GLUC 161; GFR 48; AST 49; ALB 3.2; GLOB 4.1; A/G cp 0.8. 07/09 00:08 Order name: Lipase; Complete Time: 01:24 cp 07/09 00:08 Order name: Urine Microscopic Only; Complete Time: 02:59 cp 07/09 02:59 Interpretation: Normal except: MUCUS 3+. cp 07/09 00:08 Order name: Magnesium; Complete Time: 01:24 cp 07/09 01:47 Order name: Urine --Ancillary (enter results) bb 07/09 00:08 Order name: CT Abd/Pelvis - IV Contrast Only cp 07/09 01:47 Order name: Urine Dipstick-Ancillary; Complete Time: 02:15 EDMS 07/09 02:15 Interpretation: Normal except: UKET Trace; UPROT 1+. cp 07/09 02:59 Order name: Ova And Parasites cp 07/09 02:59 Order name: Rotavirus Antigen cp 07/09 02:59 Order name: Stool Culture cp 07/09 02:59 Order name: CDIFF cp 07/09 00:08 Order name: IV Saline Lock; Complete Time: 00:36 cp 07/09 00:08 Order name: Labs collected and sent; Complete Time: 00:36 cp 07/09 00:08 Order name: Urine Dipstick-Ancillary (obtain specimen); Complete Time: 01:49 cp 07/09 00:08 Order name: Urine Test (obtain specimen); Complete Time: 01:49 cp Administered Medications: 00:36 Drug: Pepcid (famotidine) 20 mg Route: IVP; Site: left antecubital; aa9 00:42 Follow up: Response: No adverse reaction aa9 00:36 Drug: Zofran (Ondansetron) 4 mg Route: IVP; Site: left antecubital; aa9 00:42 Follow up: Response: No adverse reaction aa9 00:36 Drug: NS 0.9% 1000 ml Route: IV; Rate: 1 calculated rate; Site: left antecubital; aa9 03:50 Drug: Cipro (ciprofloxacin) 500 mg Route: PO; aa9 03:50 Follow up: Response: No adverse reaction aa9 03:50 Drug: metroNIDAZOLE 500 mg Route: PO; aa9 03:51 Follow up: Response: No adverse reaction aa9 03:50 Drug: Dicyclomine 20 mg Route: IM; Site: right deltoid; aa9 03:51 Follow up: Response: No adverse reaction aa9 Disposition Summary: 07/09/22 03:13 Discharge Ordered Location: Home cp Problem: new cp Symptoms: have improved cp Condition: Stable cp Diagnosis - Indeterminate colitis cp - Nausea cp Followup: cp - With: Joselo Merida MD - When: 1 week - Reason: Recheck today's complaints Discharge Instructions: - Discharge Summary Sheet cp - Nausea, Adult cp - Colitis cp Forms: - Medication Reconciliation Form cp - Thank You Letter cp - Antibiotic Education cp - Prescription Opioid Use cp Prescriptions: - Zofran 4 mg Oral Tablet - take 1 tablet by ORAL route every 12 hours As needed; 20 tablet; Refills: 0, cp Product Selection Permitted - Cipro 500 mg Oral Tablet - take 1 tablet by ORAL route every 12 hours for 10 days; 20 tablet; Refills: 0, cp Product Selection Permitted - Metronidazole 500 mg Oral Tablet - take 1 tablet by ORAL route every 8 hours; 30 tablet; Refills: 0, Product cp Selection Permitted - dicyclomine 20 mg Oral Tablet - take 1 tablet by ORAL route 4 times per day; 30 tablet; Refills: 0, Product cp Selection Permitted Signatures: Dispatcher [employer] EDNV Narendra Franco PA PA cp Avalos, Aylin, RN RN aa9 Carole Freeman RN RN kb3 Corrections: (The following items were deleted from the chart) 07/08 23:44 23:41 Home Meds: Clindamycin Oral; kb3 kb3
--- NOTE | 2022-07-09 03:14 | ER ---
Nurse's Notes [facility] Name: Colleen Jackson Age: 56 yrs Sex: Female : 1965 Arrival Date: 07/08/2022 Time: 23:16 Bed 14 Private MD: Diagnosis: Indeterminate colitis;Nausea Presentation: 07/08 23:39 Chief complaint: Patient states: Diarrhea since Thursday and nausea that began tonight. kb3 Coronavirus screen: Vaccine status: Patient reports receiving the 2nd dose of the covid vaccine. Client denies travel out of the [place] in the last 14 days. Ebola Screen: Patient negative for fever greater than or equal to 101.5 degrees Fahrenheit, and additional compatible Ebola Virus Disease symptoms Patient denies exposure to infectious person. Patient denies travel to an Ebola-affected area in the 21 days before illness onset. Initial Sepsis Screen: Does the patient meet any 2 criteria? No. Patient's initial sepsis screen is negative. Does the patient have a suspected source of infection? No. Patient's initial sepsis screen is negative. Initial Sepsis Screen: Does the patient meet any 2 criteria?. Risk Assessment: Do you want to hurt yourself or someone else? Patient reports no desire to harm self or others. Onset of symptoms was July 07, 2022. 23:39 Method Of Arrival: Wheelchair kb3 23:39 Acuity: LELO 3 kb3 Triage Assessment: 23:41 General: Appears ill, Behavior is calm, cooperative. Pain: Complains of pain in abdomen kb3 Pain does not radiate. Pain currently is 7 out of 10 on a pain scale. Quality of pain is described as burning, crampy. GI: Reports lower abdominal pain, upper abdominal pain, cramping, diarrhea, nausea. Historical: - Allergies: 23:41 No Known Allergies; kb3 - Home Meds: 23:41 Wellbutrin SR 150 mg Oral SR12 1 tab once daily [Active]; hydroxyzine HCl 25 mg Oral kb3 tab 1 tab nightly for anxiety [Active]; Mounjaro 5mg 5 mg weekly on Thu [Active]; - PMHx: 23:41 Depressive disorder; Anxiety; kb3 - PSHx: 23:41 section; Cholecystectomy; R elbow; Uterine ablation; kb3 - Immunization history:: Adult Immunizations up to date, Client reports receiving the 2nd dose of the Covid vaccine, Last tetanus immunization: up to date. - Social history:: Smoking status: Patient denies any tobacco usage or history of. Screenin:55 Abuse screen: Denies threats or abuse. Denies injuries from another. Nutritional aa9 screening: Has had N/V for 3 or more days. Tuberculosis screening: No symptoms or risk factors identified. Fall Risk None identified. Assessment: 23:53 General: Appears uncomfortable, Behavior is cooperative, appropriate for age. Pain: aa9 Complains of pain in right lower quadrant and left lower quadrant Pain currently is 8 out of 10 on a pain scale. Pain began 1 day ago. Also complains of decreased appetite, nausea. Neuro: Level of Consciousness is awake, alert, obeys commands, Oriented to person, place, time, situation. Cardiovascular: Patient's skin is warm and dry. Respiratory: Airway is patent Respiratory effort is even, unlabored. GI: Abdomen is flat, Reports diarrhea, nausea. : No signs and/or symptoms were reported regarding the genitourinary system. EENT: No signs and/or symptoms were reported regarding the EENT system. Derm: Skin is intact, with poor turgor Skin is pale. 07/09 00:41 Reassessment: Patient appears in no apparent distress at this time. Patient is alert, aa9 oriented x 3, equal unlabored respirations, skin warm/dry/pink. Vital Signs: 07/08 23:39 BP 109 / 80; Pulse 129; Resp 20; Temp 98.5; Pulse Ox 100% ; Weight 83.46 kg; Height 5 kb3 ft. 3 in. (160.02 cm); Pain 6/10; 07/09 00:05 BP 116 / 73; Pulse 109; Resp 18 S; Pulse Ox 99% on R/A; aa9 00:41 BP 117 / 78; Pulse 98; Resp 18 S; Pulse Ox 99% on R/A; aa9 01:30 BP 140 / 85; Pulse 92; Resp 18 S; Pulse Ox 97% on R/A; aa9 07/08 23:39 Body Mass Index 32.59 (83.46 kg, 160.02 cm) kb3 ED Course: 07/08 23:16 Patient arrived in ED. ag3 23:26 Antonina Hernandez, RN is Primary Nurse. aa9 23:26 Narendra Franco PA is PHCP. cp 23:26 Narendra Mcdaniels MD is Attending Physician. cp 23:41 Triage completed. kb3 23:41 Arm band placed on right wrist. Patient placed in an exam room, in a wheelchair. kb3 23:43 Patient has correct armband on for positive identification. Bed in low position. Call aa9 light in reach. Adult w/ patient. 23:55 Warm blanket given. Family accompanied patient. aa9 07/09 00:35 Inserted saline lock: 20 gauge in left antecubital area, using aseptic technique. Blood aa9 collected. 00:35 No provider procedures requiring assistance completed. aa9 00:36 Magnesium Sent. aa9 00:36 CBC with Diff Sent. aa9 00:36 CMP Sent. aa9 00:36 Lipase Sent. aa9 00:36 Urine Microscopic Only Sent. aa9 01:48 Straight cath inserted, using sterile technique, Specimen obtained. Returned sophia aa9 urine. Patient tolerated well. 02:18 CT Abd/Pelvis - IV Contrast Only In Process Unspecified. EDMS 03:12 Joselo Merida MD is Referral Physician. cp 03:37 CDIFF Sent. aa9 03:37 Ova And Parasites Sent. aa9 03:37 Rotavirus Antigen Sent. aa9 03:37 Stool Culture Sent. aa9 03:52 IV discontinued, intact, bleeding controlled, No redness/swelling at site. Pressure aa9 dressing applied. Administered Medications: 00:36 Drug: Pepcid (famotidine) 20 mg Route: IVP; Site: left antecubital; aa9 00:42 Follow up: Response: No adverse reaction aa9 00:36 Drug: Zofran (Ondansetron) 4 mg Route: IVP; Site: left antecubital; aa9 00:42 Follow up: Response: No adverse reaction aa9 00:36 Drug: NS 0.9% 1000 ml Route: IV; Rate: 1 calculated rate; Site: left antecubital; aa9 03:50 Drug: Cipro (ciprofloxacin) 500 mg Route: PO; aa9 03:50 Follow up: Response: No adverse reaction aa9 03:50 Drug: metroNIDAZOLE 500 mg Route: PO; aa9 03:51 Follow up: Response: No adverse reaction aa9 03:50 Drug: Dicyclomine 20 mg Route: IM; Site: right deltoid; aa9 03:51 Follow up: Response: No adverse reaction aa9 Medication: 07/08 23:43 VIS not applicable for this client. aa9 Outcome: 07/09 03:13 Discharge ordered by . cp 03:51 Discharged to home via wheelchair, with family. aa9 03:51 Condition: stable 03:51 Discharge instructions given to patient, family, Instructed on discharge instructions, follow up and referral plans. medication usage, Demonstrated understanding of instructions, follow-up care, medications, Prescriptions given X 4. 03:52 Patient left the ED. aa9 Signatures: Dispatcher [employer] EDMS Narendra Franco PA PA cp Gomez, Alice ag3 Antonina Hrenandez RN RN aa9 Carole Freeman RN RN kb3 Corrections: (The following items were deleted from the chart) 07/08 23:44 23:41 Home Meds: Clindamycin Oral; kb3 kb3
[2022-07-09] MEDS ORDERED: metroNIDAZOLE 500 MG TABLET ONE (03:37)
[2022-07-09] MEDS ORDERED: CIPROFLOXACIN HCL 500 MG TAB ONE (03:38)
[2022-07-09] MEDS ORDERED: DICYCLOMINE HCL 20 MG/2 ML AMP IM ONE (03:38)
[2022-07-09 03:46] LABS: Urine Specific Gravity/Preg >1.030 (1.005-1.030)
[2022-07-09 03:57] VITALS: TEMP 98.5
[2022-07-09 04:00] VITALS: BP 140/85; O2SAT 97
[2022-07-09 10:50] LABS: C.diff Antigen/Toxin Ag neg : Tox neg (NEG : NEG)
--- NOTE | 2022-07-09 12:37 | RAD REPORT ---
EXAM DESCRIPTION: CT Abdomen and Pelvis With Intravenous Contrast CLINICAL HISTORY: The patient is 56 years old and is Female; diarrhea [facility] MAIN TECHNIQUE: Axial computed tomography images of the abdomen and pelvis with intravenous contrast. S agittal and coronal reformatted images were created and reviewed. This CT exam was performed using one or more of the following dose reduction techniques: automated exposure control, adjustment of t he mA and/or kV according to patient size, and/or use of iterative reconstruction technique. COMPARISON: No relevant prior studies available. FINDINGS: LUNG BASES: Unremarkable. No mass. No consolidation. ABDOMEN: LIVER: Unremarkable. No mass. GALLBLADDER AND BILE DUCTS: Cholecystectomy. No ductal dilation. PANCREAS: Unremarkable. No mass. No ductal dilation. SPLEEN: Unremarkable. No splenomegaly. ADRENALS: Indeterminate 1 cm left adrenal nodule. KIDNEYS AND URETERS: Bilateral nonobstructive intrarenal stones. Simple subcentimeter right renal cyst. No dedicated imaging follow-up recommended for this pa rticular finding. STOMACH AND BOWEL: Circumferential thickening of the descending and sigmoid colon and rectal shah, suggesting colitis. Small-volume hyperdense material layering within the gastric cardia presumably reflects inges raina hyperdense medication. No obstruction. PELVIS: APPENDIX: No findings to suggest acute appendicitis. BLADDER: Decompressed appearance of the urinary bladder with several tiny foci of intraluminal air. REPRODUCTIVE: Unremarkable as visualized. ABDOMEN and PELVIS: INTRAPERITONEAL SPACE: Unremarkable. No free air. No significant fluid collection. BONES/JOINTS: See above. SOFT TISSUES: Small fat-containing umbilical hernia. VASCULATURE: No abdominal aortic aneurysm or dissection. LYMPH NODES: Unremarkable. No enlarged lymph nodes. IMPRESSION: 1. Circumferential thickening of the descending and sigmoid colon and rectal shah, [place] ggesting colitis. 2. Indeterminate 1 cm left adrenal nodule. Consider correlation with prior exams, if available to e valuate for chronicity/stability. Otherwise, further characterization by nonemergent adrenal mass pro tocol CT recommended. 3. Decompressed appearance of the urinary bladder with several tiny foci of intraluminal air. Clini alfredo correlate for recent Sanchez catheterization. Electronically signed by: Simon Whalen MD 07/09/2022 2:51 AM CUSTOMER ACCOUNT MANAGER Due to temporary technical issues with the PACS/Fluency reporting system, reports are being signed by the in house radiologists without review as a courtesy to insure prompt reporting. The interpreting radiologist is fully responsible for the content of the report.
== END 2022-07-09 03:52 | disposition home or self-care (01) ==
LOC: ER 23:11
DX: K52.3 Indeterminate colitis (principal); F32.A Depression, unspecified
CPT/HCPCS: 87045; 85025; 36415; 83735; 87177; 81025; 87046; 87209; 87324; 83690; 80053; 87425; 74177; 51702; 96375; 96372; 96374; 99284; Q9967; J0500; J7030; J2405; 81003; 81015